=== PATIENT | female | born 1995 | race Caucasian/White ===

== ENCOUNTER 2022-09-22 20:25 | Emergency (ER) | payer OTHER ==
[~2022-09-22] VITALS: Ht 172.7 cm; Wt 113.4 kg
[2022-09-22 20:45] VITALS: BP 123/67
--- NOTE | 2022-09-22 20:53 | NUR ---
TO LOBBY FOLLOWING TRIAGE
--- NOTE | 2022-09-22 21:20 | NUR ---
PT TO BED 3
--- NOTE | 2022-09-22 21:34 | NUR ---
FIRST CONTACT WITH PT SEE ASSESSMENT. PT IN POSITION OF COMFORT. AWAITING ORDERS.
[2022-09-22] MEDS ORDERED: MORPHINE SULFATE 4 MG/ML SYR IVP ONE (21:50)
[2022-09-22] MEDS ORDERED: NACL 0.9% 1,000 ML IV ONE (21:50)
[2022-09-22 22:00] LABS: APPEARANCE,URINE SL CLOUDY (CLEAR); BILIRUBIN,URINE NEGATIVE (NEGATIVE); BLOOD, URINE 2+ (NEGATIVE); COLOR,URINE YELLOW (YELLOW); LEUKOCYTE ESTERASE ,URINE NEGATIVE (NEGATIVE); NITRITE, URINE NEGATIVE (NEGATIVE); UGLUCOSE NEGATIVE (NEGATIVE)
[2022-09-22 22:06] LABS: BASOPHILS % (AUTO) 0.7 % (0.0-2.0); EOSINOPHILS # (AUTO) 0.1 K/uL (0-0.4); EOSINOPHILS % (AUTO) 1.9 % (0.0-4.0); HEMATOCRIT 41.2 % (36-48); LYMPHOCYTES # (AUTO) 1.8 K/uL (2.5-16.5); LYMPHOCYTES % (AUTO) 34.4 % (20.5-51.1); MEAN CORPUSCULAR HEMOGLOBIN 30 pg (27-31); MEAN CORPUSCULAR HGB CONC 34 g/dL (33-37); MEAN CORPUSCULAR VOLUME 86.7 fL (80-94); MONOCYTES # (AUTO) 0.7 K/uL (0.8-1.0); NEUTROPHILS # (AUTO) 2.6 K/uL (1.8-7.7); PLATELET COUNT (AUTO) 206 K/uL (140-450); RED BLOOD CELL COUNT(AUTO) 4.75 MIL/uL (4.20-5.40); RED CELL DISTRIBUTION WIDTH 12.5 % (11.6-13.7); WHITE BLOOD COUNT (AUTO) 5.2 K/uL (4.8-10.8)
[2022-09-22 22:15] LABS: OTHER CASTS, URINE None Seen /LPF (None Seen); WBC,URINE 0-5 /HPF (0-5)
[2022-09-22 22:18] LABS: ALBUMIN 3.2 g/dL (3.4-5.0); CARBON DIOXIDE 31.4 mmol/L (21-32); CREATININE 0.7 mg/dL (0.6-1.3); POTASSIUM 3.4 mmol/L (3.5-5.1); TOTAL BILIRUBIN 0.3 mg/dL (0.0-1.0)
[2022-09-22] MEDS ORDERED: ONDANSETRON 4 MG/2 ML VIAL IVP ONE (22:20)
--- NOTE | 2022-09-22 23:15 | NUR ---
PT IN POSITION OF COMFORT. AWAITING RESULTS. WILL CONTINUE TO MONITOR.
[2022-09-23] MEDS ORDERED: METOCLOPRAMIDE 10 MG/2 ML INJ VIAL IVP ONE (00:05)
[2022-09-23] MEDS ORDERED: MORPHINE SULFATE 4 MG/ML SYR IVP ONE (00:05)
--- NOTE | 2022-09-23 00:14 | NUR ---
PT C/O PAIN 6/10 WITH NAUSEA, WILL FOLLOW THROUGH WITH ORDERS.
[2022-09-23] MEDS ORDERED: ONDA-188 PO (00:38)
[2022-09-23] MEDS ORDERED: ACET-10509 PO (00:38)
[2022-09-23] MEDS ORDERED: ACET-5629 PO (00:38)
[2022-09-23 01:01] VITALS: BP 118/62
--- NOTE | 2022-09-23 01:01 | NUR ---
Patient discharged with v/s stable. Written and verbal after care instructions given and explained. Patient alert, oriented and verbalized understanding of instructions. Ambulatory with steady gait. All questions addressed prior to discharge. ID band removed. Patient advised to follow up with PMD. Rx of TYLENOL, PERCOCET given. Patient educated on indication of medication including possible reaction and side effects. Opportunity to ask questions provided and answered.
== END 2022-09-23 01:01 | disposition home or self-care (01) ==
LOC: MED 20:25
DX: K80.20 Calculus of gallbladder without cholecystitis without obstruction (principal); K80.50 Calculus of bile duct without cholangitis or cholecystitis without obstruction; R82.81 Pyuria; Z98.890 Other specified postprocedural states
CPT/HCPCS: 36415; 76705; 80053; 81001; 81025; 83690; 85025; 87086; 96361; 96365; 96375; 99285; J2270; J2405; J2765; J7030

== ENCOUNTER 2024-02-08 19:22 | Emergency (ER) | payer OTHER ==
[~2024-02-08] VITALS: Ht 170.2 cm; Wt 131.5 kg
[~2024-02-08 19:22] MED LIST: ACET-10509 PO; ACET-5629 PO; ONDA-188 PO
[2024-02-08 19:59] VITALS: BP 148/76; PULSE 77; RESP 16; TEMP 97.9; O2SAT 97
[2024-02-08 21:14] LABS: FLU A ANTIGEN negative (NEGATIVE); FLU B ANTIGEN NEGATIVE (NEGATIVE)
[2024-02-08] MEDS: ACETAMINOPHEN EXTRA STRENGTH 500 MG TAB PO ONE (21:33)
[2024-02-08 21:49] LABS: APPEARANCE,URINE CLEAR (CLEAR); BILIRUBIN,URINE NEGATIVE (NEGATIVE); BLOOD, URINE TRACE-I (NEGATIVE); COLOR,URINE YELLOW (YELLOW); LEUKOCYTE ESTERASE ,URINE NEGATIVE (NEGATIVE); NITRITE, URINE NEGATIVE (NEGATIVE); PROTEIN,URINE NEGATIVE (NEGATIVE); UGLUCOSE NEGATIVE (NEGATIVE); UROBILINOGEN,URINE 0.2 EU/dL (0.2 - 1)
[2024-02-08] MEDS ORDERED: ACET-10509 PO (22:07)
== END 2024-02-08 22:13 | disposition home or self-care (01) ==
LOC: MED 19:22
DX: O99.511 Diseases of the respiratory system complicating pregnancy, first trimester (principal); Z20.822 Contact with and (suspected) exposure to COVID-19; Z3A.01 Less than 8 weeks gestation of pregnancy
CPT/HCPCS: 81003; 81025; 99283